=== PATIENT | male | born 1965 | race Caucasian/White ===

== ENCOUNTER 2024-08-26 07:38 | Day surgery (SDC) | payer OTHER, SELFPAY ==
--- NOTE | 2024-06-05 10:09 | SUR.PREOP ---
1000: Attempted. No working number.
--- NOTE | 2024-08-26 08:13 | EXP.GEN.HP ---
HPI HPI HPI: This is a 59-year-old gentleman who presents for colonoscopy. No prior history of colonoscopy. No melena. No bright red blood per rectum. He states that a stool study last year showed blood . [facility] Disclaimer: The information contained in this section may have been updated after the patient was seen, as this information can be updated by other users. Medical History (Updated 08/26/24 @ 08:15 by Evelio Walls MD) Enlarged prostate Surgical History (Updated 08/26/24 @ 08:13 by Veronica Daily RN) H/O prostate biopsy Family History (Updated 08/26/24 @ 08:12 by Veronica Daily RN) Pancreatic cancer Mother Prostate cancer Grandfather Breast cancer Grandmother Social History (Updated 08/26/24 @ 08:11 by Veronica Daily RN) Smoking Status: Former smoker alcohol intake: never current occupational status: retired Travel in the last 8 weeks: None Have you lived/traveled outside [place] in past 30 days?: No Contact w/someone who lives/traveled outside [place] past 30 days?: No Exposure to someone with infectious disease in past 14 days?: No Do you have a fever (greater than 100.4 F or 38 C)?: No Have you tested positive for COVID-19: No Exposed to someone with COVID-19 in past 14 days?: No Do you have a sore throat?: No Do you have a cough?: No Do you have any weakness?: No Are you experiencing any nausea/vomitting?: No Do you have any diarrhea?: No Are you experiencing any unusual bleeding?: No Do you have any muscle aches/pain?: No Do you have any abdominal pain?: No Are you experiencing loss of taste or smell?: No Review of Systems Review of Systems Review of systems:: pertinent systems reviewed and negative unless documented below Constitutional Constitutional: Reports system reviewed and no additional complaints, except as documented Meds Home Medications and Allergies Home Medications ?Medication ?Instructions ?Recorded ?Confirmed ?Type tadalafil 5 mg tablet 5 mg PO DAILY 08/26/24 08/26/24 History tamsulosin 0.4 mg capsule (Flomax) 0.4 mg PO DAILY 08/26/24 08/26/24 History New Prescriptions to Start Prescriptions: Allergies Allergy/AdvReac Type Severity Reaction Status Date / Time No Known Allergies Allergy Verified 08/26/24 08:10 Exam Constitutional Constitutional: no acute distress *Routine HEENT Exam Head: Present normocephalic Eye: Present EOMI ENT: Present mucous membranes moist *Routine Neck Exam Neck: Present full ROM *Routine Respiratory Exam Respiratory: Absent respiratory distress *Routine Cardiovascular Exam Cardiovascular: Absent tachycardia *Routine Abdominal Exam Abdominal: Present soft *Routine Rectal Exam Rectal:: deferred *Routine Genitalia Exam Genitalia:: deferred *Routine Neurological Exam Neurological: Present alert Routine Psychiatric Exam Psychiatric: Present normal affect Assessment and Plan *Assessment and plan (1) Encounter for screening colonoscopy: Status: Acute Category: Medical Code(s): Z12.11 - Encounter for screening for malignant neoplasm of colon Plan: Colonoscopy today I have discussed the risks and benefits including, but not limited to: Bleeding Infection Damage to surrounding tissue Inherent risks of sedation The patient agrees to proceed.
--- NOTE | 2024-08-26 08:14 | EXP.ANES.CKL ---
[facility] Disclaimer: The information contained in this section may have been updated after the patient was seen, as this information can be updated by other users. Medical History (Updated 08/26/24 @ 08:15 by Evelio Walls MD) Enlarged prostate Surgical History (Updated 08/26/24 @ 08:13 by Veronica Daily, JEOVANY) H/O prostate biopsy Family History (Updated 08/26/24 @ 08:12 by Veronica Daily, JEOVANY) Mother Pancreatic cancer Grandmother Breast cancer Grandfather Prostate cancer Social History (Updated 08/26/24 @ 08:11 by Veronica Daily RN) Smoking Status: Former smoker alcohol intake: never substance use type: denies use current occupational status: retired Travel in the last 8 weeks: None [facility] Anesthesia Checklist Patient Identification Patient Identification: Arm Band and Verbal (Name & ) Structural Data Admitted From: Home Planned Operative Procedure/s: colonoscopy Consent for Planned Operative Procedure(s) Verified: Yes Verified Documents: Surgical Consent and History and Physical NPO Status Verified Time NPO: 06:10 (water) Additional verifications Patient : No Anesthesia Reactions: No Cardiovascular Assessment Heart Sounds: S1 & S2 Pulse Rhythm: Irregular Peripheral Edema: No Airway Assessment Mallampati Score:: Class II C-Spine Mobility Assessed: Yes (FROM demonstrated) TMJ Mobility Assessed: Yes Dentition: Good Dentition (Nothing loose per pt.) Neurological Assessment Level of Consciousness: Awake, Alert, Appropriate and Follows Commands Hx Seizures: No Numbness or tingling in extremities: No Anesthesia Plan Anesthesia Risk discussed: Yes Anesthesia Plan: Verified ASA Class: I Anesthesia Type: MAC
[2024-08-26 08:15] VITALS: BP 118/80; PULSE 85; RESP 20; TEMP 36.8; O2SAT 96; BMI 24.7
[2024-08-26] MEDS: LACTATED RINGERS 1000ML 1,000 ML 50 ML IV (08:22)
[2024-08-26 08:28] VITALS: O2SAT 96
--- NOTE | 2024-08-26 08:28 | HMH.SCOPE ---
Procedure: Date: 08/26/24 Patient Date of :: 1965 Procedure Performed:: Colonoscopy with polypectomy Indications:: Screening Performing Provider:: Evelio Walls MD Referring Provider:: . Sedation:: Monitored anesthesia care Procedure:: After informed consent was obtained the patient was taken to the endoscopy suite. Sedation ensued after the patient was transferred to the left lateral decubitus position. Pulse, blood pressure, and oxygen saturation were monitored throughout the procedure. Digital rectal exam revealed no significant abnormality. The colonoscope was placed in position. The entire colon was evaluated. The colonoscope was carefully removed and the patient was transferred to recovery in stable condition. Please see findings and specimens below for detail. Findings:: Bowel preparation fair to moderate Severe tortuosity Fairly severe spasticity/lack of relaxation Mild scattered early sigmoid diverticulosis Polyps (see specimens) Specimens:: Lobulated sessile polyp at 35 cm (cold snare) Adjacent complex lobulated polyps at 25 cm (cold snare) Recommendations:: Timing of repeat colonoscopy is pending pathology will likely be around 2-3 years secondary to tortuosity, spasticity, and size/nature of polyps. Complications:: No immediate Estimated blood obtained (mL): 1 Colonoscopy Component Colonoscopy Component Was a colonoscopy performed during today's procedure?: Yes Recommended follow up colonoscopy of at least 10 years?: No If no, follow up colonoscopy recommended in ___ years?: (See above) Reason for not recommending >/= 10 yr follow-up interval?: (See above)
[2024-08-26 09:08] VITALS: BP 110/71; PULSE 72; RESP 15; TEMP 36.4; O2SAT 98
[2024-08-26 09:18] VITALS: BP 97/73; PULSE 68; RESP 16; O2SAT 99
[2024-08-26 09:28] VITALS: BP 135/81; PULSE 75; RESP 16; O2SAT 99
[2024-08-26 09:38] VITALS: BP 123/77; PULSE 67; RESP 16; O2SAT 100
== END 2024-08-26 09:40 | disposition home or self-care (01) ==
PROVIDERS: Visit Provider Surgery
PROC: 0DJD8ZZ Inspection of Lower Intestinal Tract, Via Natural or Artificial Opening Endoscopic (ICD-10-PCS; CPT 45385; principal; 2024-08-26 08:30)
DX: K63.5 Polyp of colon (principal); D12.5 Benign neoplasm of sigmoid colon; K57.30 Diverticulosis of large intestine without perforation or abscess without bleeding; Z12.11 Encounter for screening for malignant neoplasm of colon
CPT/HCPCS: 45385; J7120